=== PATIENT | male | born 1975 | race Two or more races ===

== ENCOUNTER 2025-06-02 18:57 | Emergency (ER) | payer MEDICAID ==
[~2025-06-02] VITALS: Ht 172.7 cm; Wt 81.6 kg
[2025-06-02 19:16] VITALS: BP 109/87; TEMP 98.7; O2SAT 98
== END 2025-06-02 19:22 | disposition left against medical advice (07) ==
LOC: ER 19:05
DX: Z00.00 Encounter for general adult medical examination without abnormal findings (principal); Z53.21 Procedure and treatment not carried out due to patient leaving prior to being seen by health care provider